=== PATIENT | female | born 1930 | race Caucasian/White ===

== ENCOUNTER 2018-04-21 19:00 | Inpatient (IN) | payer MEDICARE, BC ==
[~2018-04-21] VITALS: Ht 167.6 cm; Wt 74.4 kg
[~2018-04-21 19:00] MED LIST: CHOL200074 MT; CITA10SO PO; DOCU-138 MT; HYDR12.529 MT; LOSA50TA20 MT; MAGN250T29 MT; PANT40TA4 MT; POLY17PO28 MT; SIMV10TA6 MT
[2018-04-21 19:35] VITALS: BP 208/76
[2018-04-21] MEDS ORDERED: FLUT16SP15 BOTHNSTRLS (20:42)
[2018-04-21] MEDS ORDERED: BENZ100C86 MT (20:42)
[2018-04-21] MEDS ORDERED: LEVO75TA7 MT (20:42)
[2018-04-21] MEDS ORDERED: ACET-2178 MT (20:43)
[2018-04-21] MEDS ORDERED: ACETAMINOPHEN 325MG TABLET PO PRN (21:45)
[2018-04-21] MEDS ORDERED: DOCUSATE SODIUM 100MG CAPSULE PO PRN (21:45)
[2018-04-21] MEDS ORDERED: DIPHENHYDRAMINE 50MG/ML VIAL IV PRN (21:45)
[2018-04-21] MEDS ORDERED: GUAIFENESIN 200MG/10ML SUGAR FREE UDC PO PRN (21:45)
[2018-04-21] MEDS ORDERED: HYDRALAZINE 20MG/ML VIAL IV PRN (21:45)
[2018-04-21] MEDS ORDERED: BENZONATATE 100MG CAPSULE PO PRN (21:45)
[2018-04-21] MEDS ORDERED: IPRATROPIUM/ALBUTEROL 0.5-3(2.5)MG/3ML NEB HHN PRN (22:00)
[2018-04-21] MEDS: METHYLPREDNISOLONE SOD SUCC 40 MG/ML VIAL IV SCH (22:11)
[2018-04-22] VITALS: BP 171/77
[2018-04-22] MEDS: IPRATROPIUM/ALBUTEROL 0.5-3(2.5)MG/3ML NEB HHN SCH ×6 (00:01→20:01)
[2018-04-22] MEDS: BUDESONIDE 0.5MG/2ML NEB HHN SCH ×3 (00:05→20:01)
[2018-04-22 04:00] VITALS: BP 148/71
[2018-04-22] MEDS: METHYLPREDNISOLONE SOD SUCC 40 MG/ML VIAL IV SCH ×2 (06:17→14:49)
[2018-04-22] MEDS: LEVOTHYROXINE SODIUM 75MCG TABLET PO SCH (06:20)
[2018-04-22 07:07] LABS: CHLORIDE 82 mEq/L (98-107)
[2018-04-22] MEDS ORDERED: PANTOPRAZOLE 40MG DR TABLET PO SCH ×2 (07:20→21:00)
[2018-04-22 07:22] LABS: BASOPHILS % 0.2 % (0.0-2.0); HEMATOCRIT. 34.3 % (36.0-48.0); HEMOGLOBIN. 12.2 g/dL (12.0-16.0); LYMPHOCYTES % 7.3 % (20.0-50.0); MEAN CORPUSCULAR HEMOGLOBIN 31.7 pg (28.0-32.0); MEAN CORPUSCULAR VOLUME 89.3 fL (81.0-99.0); MEAN PLATELET VOLUME 8.2 fl (7.4-10.4); MONOCYTES % 3.7 % (2.0-8.0); NEUTROPHILS % 88.8 % (40.0-76.0); PLATELET 192 x1000/uL (130-400); RED BLOOD CELL COUNT 3.84 mill/uL (4.2-5.4); RED CELL DISTRIBUTION WIDTH 14.8 % (11.6-14.6)
[2018-04-22] MEDS ORDERED: SODIUM CHLORIDE 0.9% 1,000 ML IV SCH (08:45)
[2018-04-22] MEDS ORDERED: HYDROCHLOROTHIAZIDE 12.5MG CAPSULE PO SCH (09:00)
[2018-04-22] MEDS: FLUTICASONE PROPIONATE 50MCG/SPRAY BOTTLE BOTHNSTRLS SCH ×2 (09:00→16:20)
[2018-04-22] MEDS ORDERED: CITALOPRAM HYDROBROMIDE 10MG TABLET PO SCH (09:00)
[2018-04-22] MEDS ORDERED: CEFTRIAXONE 1 G PREMIX 50 ML IV SCH (09:30)
[2018-04-22] MEDS: LOSARTAN POTASSIUM 50 MG TABLET PO SCH (09:35)
[2018-04-22] MEDS ORDERED: BUDESONIDE 0.5MG/2ML NEB HHN SCH (10:00)
[2018-04-22 13:01] VITALS: BP 126/51
[2018-04-22 13:53] LABS: T4 FREE 1.59 ng/dL (0.76-1.46)
[2018-04-22] MEDS: METRONIDAZOLE 500 MG PREMIX 100 ML IV SCH ×2 (14:49→19:10)
[2018-04-22] MEDS ORDERED: SODIUM CHLORIDE 3% 500 ML IV ONE (15:00)
[2018-04-22] MEDS: CEFTRIAXONE 1,000 MG in DEXTROSE 5% WATER 50 ML IV SCH (16:20)
[2018-04-22 16:35] VITALS: BP 143/74
[2018-04-22] MEDS: DEXAMETHASONE 4MG TABLET PO SCH ×2 (19:10→23:46)
[2018-04-22 20:00] VITALS: BP 135/61
[2018-04-23] VITALS: BP 130/61
[2018-04-23] MEDS: IPRATROPIUM/ALBUTEROL 0.5-3(2.5)MG/3ML NEB HHN SCH ×6 (00:47→20:53)
[2018-04-23] MEDS: METRONIDAZOLE 500 MG PREMIX 100 ML IV SCH ×3 (02:58→20:30)
[2018-04-23 04:00] VITALS: BP 126/69
[2018-04-23] MEDS: DEXAMETHASONE 4MG TABLET PO SCH ×3 (06:27→17:44)
[2018-04-23] MEDS: LEVOTHYROXINE SODIUM 75MCG TABLET PO SCH (06:27)
[2018-04-23] MEDS: BUDESONIDE 0.5MG/2ML NEB HHN SCH ×2 (07:14→20:53)
[2018-04-23] MEDS ORDERED: PANTOPRAZOLE 40MG DR TABLET PO SCH (07:20)
[2018-04-23 08:00] VITALS: BP 140/67
[2018-04-23] MEDS ORDERED: FAMOTIDINE 20MG TABLET PO SCH (09:00)
[2018-04-23] MEDS: FLUTICASONE PROPIONATE 50MCG/SPRAY BOTTLE BOTHNSTRLS SCH ×2 (09:51→17:37)
[2018-04-23] MEDS: FAMOTIDINE 20MG TABLET PO SCH (09:53)
[2018-04-23] MEDS: LOSARTAN POTASSIUM 50 MG TABLET PO SCH (09:53)
[2018-04-23] MEDS ORDERED: BARIUM SULFATE 176 GM SUSP.RECON ONE (10:26)
[2018-04-23] MEDS ORDERED: SODIUM CHLORIDE 0.9% 1,000 ML IV SCH (11:45)
[2018-04-23 12:00] VITALS: BP 130/66
[2018-04-23] MEDS: CEFTRIAXONE 1,000 MG in DEXTROSE 5% WATER 50 ML IV SCH (14:28)
[2018-04-23 16:05] VITALS: BP 144/49
[2018-04-23] MEDS ORDERED: SODIUM CHLORIDE 3% 500 ML IV NR (18:00)
[2018-04-23 20:00] VITALS: BP 139/66
[2018-04-24] VITALS (8 sets, daily range): BP systolic 133–168; BP diastolic 52–109
[2018-04-24] MEDS: IPRATROPIUM/ALBUTEROL 0.5-3(2.5)MG/3ML NEB HHN SCH ×5 (00:15→20:11)
[2018-04-24] MEDS: METRONIDAZOLE 500 MG PREMIX 100 ML IV SCH ×2 (03:57→11:04)
[2018-04-24 04:31] LABS: CHLORIDE 91 mEq/L (98-107)
[2018-04-24] MEDS: DEXAMETHASONE 4MG TABLET PO SCH ×2 (06:32)
[2018-04-24] MEDS: BUDESONIDE 0.5MG/2ML NEB HHN SCH ×2 (08:45→20:11)
[2018-04-24] MEDS: LOSARTAN POTASSIUM 50 MG TABLET PO SCH (09:19)
[2018-04-24] MEDS: FAMOTIDINE 20MG TABLET PO SCH (09:19)
[2018-04-24] MEDS: CEFTRIAXONE 1,000 MG in DEXTROSE 5% WATER 50 ML IV SCH (11:04)
[2018-04-24] MEDS: LEVOTHYROXINE SODIUM 75MCG TABLET PO SCH (11:26)
[2018-04-24] MEDS: FLUTICASONE PROPIONATE 50MCG/SPRAY BOTTLE BOTHNSTRLS SCH ×2 (11:26→17:58)
[2018-04-24] MEDS ORDERED: OMEPRAZOLE 20MG CAPSULE EXTENDED RELEASE PO NR (12:30)
[2018-04-24 13:39] LABS: CLARITY URINE CLEAR (CLEAR); COLOR URINE YELLOW (YELLOW); KETONES URINE NEGATIVE (NEGATIVE); LEUKOCYTE ESTERASE URINE 1+ (NEGATIVE); NITRITE URINE NEGATIVE (NEGATIVE); OCCULT BLOOD URINE TRACE (NEGATIVE); PH URINE 6.5 (4.5-8.0); PROTEIN URINE 2+ (NEGATIVE); SPECIFIC GRAVITY URINE 1.009 (1.005-1.030); UROBILINOGEN URINE 0.2 E.U./dL (0.2-1.0)
[2018-04-24] MEDS: TRAMADOL HCL/ACETAMINOPHEN 37.5/325MG TABLET PO PRN (14:12)
[2018-04-24] MEDS: OMEPRAZOLE 20MG CAPSULE EXTENDED RELEASE PO SCH (21:09)
[2018-04-25] VITALS (7 sets, daily range): BP systolic 108–159; BP diastolic 60–84
[2018-04-25] MEDS: IPRATROPIUM/ALBUTEROL 0.5-3(2.5)MG/3ML NEB HHN SCH ×2 (01:10→21:08)
[2018-04-25] MEDS: OMEPRAZOLE 20MG CAPSULE EXTENDED RELEASE PO SCH ×2 (08:29→21:28)
[2018-04-25] MEDS: LEVOTHYROXINE SODIUM 75MCG TABLET PO SCH (08:29)
[2018-04-25] MEDS: FAMOTIDINE 20MG TABLET PO SCH (08:33)
[2018-04-25] MEDS: FLUTICASONE PROPIONATE 50MCG/SPRAY BOTTLE BOTHNSTRLS SCH (08:33)
[2018-04-25] MEDS: TRAMADOL HCL/ACETAMINOPHEN 37.5/325MG TABLET PO PRN (18:08)
[2018-04-25] MEDS ORDERED: BUDESONIDE 0.5MG/2ML NEB ONE (21:05)
== END 2018-04-25 22:45 | DRG 682 ==
LOC: 6WST 19:00 → 5EST 04-24 05:00 → 6EST 04-25 10:14
PROVIDERS: ADMIT Internal Medicine Critical Care Medicine; ATTEND Internal Medicine Critical Care Medicine
DX: N17.9 Acute kidney failure, unspecified (principal); J96.00 Acute respiratory failure, unspecified whether with hypoxia or hypercapnia; E87.1 Hypo-osmolality and hyponatremia; J98.11 Atelectasis; D64.9 Anemia, unspecified; E03.9 Hypothyroidism, unspecified; E78.5 Hyperlipidemia, unspecified; K21.9 Gastro-esophageal reflux disease without esophagitis; G20 Parkinson's disease; E04.1 Nontoxic single thyroid nodule; G70.9 Myoneural disorder, unspecified; Z96.653 Presence of artificial knee joint, bilateral; J44.9 Chronic obstructive pulmonary disease, unspecified; K59.00 Constipation, unspecified; M19.90 Unspecified osteoarthritis, unspecified site; R13.10 Dysphagia, unspecified; R47.1 Dysarthria and anarthria; I11.9 Hypertensive heart disease without heart failure; Z96.643 Presence of artificial hip joint, bilateral; S43.005A Unspecified dislocation of left shoulder joint, initial encounter; X58.XXXA Exposure to other specified factors, initial encounter; Y93.89 Activity, other specified; Y92.89 Other specified places as the place of occurrence of the external cause; Y99.8 Other external cause status; Z92.21 Personal history of antineoplastic chemotherapy; Z85.51 Personal history of malignant neoplasm of bladder; Z88.2 Allergy status to sulfonamides
CPT/HCPCS: 36415; 71045; 74230; 80048; 80061; 82024; 82533; 83036; 83519; 83930; 83935; 84295; 84300; 84439; 84443; 84481; 84550; 92611; 93005; 94640; 97162; 97166; 97530; A6261; J0360; J0696; J2920; J3490; J7030; J7040; J7060; J7620; J7626; J8540

== ENCOUNTER 2018-04-25 22:50 | Inpatient (IN) | payer MEDICARE, BC ==
[~2018-04-25] VITALS: Ht 167.6 cm; Wt 74.8 kg
[~2018-04-25 22:50] MED LIST changes: +ACET-2178 MT; +BENZ100C86 MT; +FLUT16SP15 BOTHNSTRLS; +LEVO75TA7 MT
[2018-04-26] MEDS ORDERED: IPRATROPIUM/ALBUTEROL 0.5-3(2.5)MG/3ML NEB HHN PRN (00:30)
[2018-04-26] MEDS ORDERED: DOCUSATE SODIUM 100MG CAPSULE PO PRN (00:30)
[2018-04-26] MEDS ORDERED: ACETAMINOPHEN 325MG TABLET PO PRN (00:30)
[2018-04-26] MEDS ORDERED: DIPHENHYDRAMINE 25MG CAPSULE PO PRN (00:30)
[2018-04-26] MEDS ORDERED: GUAIFENESIN 200MG/10ML SUGAR FREE UDC PO PRN (00:30)
[2018-04-26] MEDS ORDERED: TRAMADOL HCL/ACETAMINOPHEN 37.5/325MG TABLET PO PRN (00:30)
[2018-04-26] MEDS ORDERED: HYDRALAZINE HCL 10MG TABLET PO SCH (00:30)
[2018-04-26] MEDS ORDERED: BENZONATATE 100MG CAPSULE PO PRN (00:30)
[2018-04-26] MEDS ORDERED: HYDRALAZINE 10 MG in SODIUM CHLORIDE 0.9% 49.5 ML IV PRN (00:45)
[2018-04-26] MEDS: IPRATROPIUM/ALBUTEROL 0.5-3(2.5)MG/3ML NEB HHN SCH ×4 (00:50→20:46)
[2018-04-26 03:31] VITALS: BP 150/72
[2018-04-26] MEDS: LEVOTHYROXINE SODIUM 75MCG TABLET PO SCH (06:48)
[2018-04-26] MEDS ORDERED: CLONIDINE 0.1MG TABLET PO PRN (07:30)
[2018-04-26] MEDS ORDERED: OMEPRAZOLE 20MG CAPSULE EXTENDED RELEASE PO SCH (08:00)
[2018-04-26 08:09] VITALS: BP 135/75
[2018-04-26] MEDS: LOSARTAN POTASSIUM 50 MG TABLET PO SCH (09:00)
[2018-04-26] MEDS: FAMOTIDINE 20MG TABLET PO SCH (09:38)
[2018-04-26] MEDS ORDERED: BISACODYL 5MG TABLET PO PRN (19:45)
[2018-04-26 20:00] VITALS: BP 143/76
[2018-04-27] MEDS: IPRATROPIUM/ALBUTEROL 0.5-3(2.5)MG/3ML NEB HHN SCH ×5 (00:50→20:54)
[2018-04-27] MEDS: DOCUSATE SODIUM 100MG CAPSULE PO SCH ×3 (01:11→17:00)
[2018-04-27] MEDS: LEVOTHYROXINE SODIUM 75MCG TABLET PO SCH (06:09)
[2018-04-27 07:54] LABS: HEMATOCRIT. 40.1 % (36.0-48.0); HEMOGLOBIN. 13.7 g/dL (12.0-16.0); MEAN CORPUSCULAR HEMOGLOBIN 31.3 pg (28.0-32.0); MEAN CORPUSCULAR VOLUME 91.4 fL (81.0-99.0); MEAN PLATELET VOLUME 7.6 fl (7.4-10.4); PLATELET 331 x1000/uL (130-400); RED BLOOD CELL COUNT 4.39 mill/uL (4.2-5.4)
[2018-04-27 08:05] VITALS: BP 164/80
[2018-04-27] MEDS: FAMOTIDINE 20MG TABLET PO SCH (08:29)
[2018-04-27] MEDS: LOSARTAN POTASSIUM 50 MG TABLET PO SCH (08:29)
[2018-04-27 08:54] LABS: PHOSPHORUS 2.8 mg/dL (2.5-4.9)
[2018-04-27 09:48] LABS: VITAMIN B12 SERUM 1839 pg/mL (211-911)
[2018-04-27] MEDS ORDERED: POTASSIUM CHLORIDE 20MEQ TABLET SR PO SCH (11:15)
[2018-04-27] MEDS ORDERED: POTASSIUM CHLORIDE 20MEQ/PACKET PO SCH (11:30)
[2018-04-27 12:52] LABS: PLATELET ESTIMATE NORMAL
[2018-04-27 20:39] VITALS: BP 148/77
[2018-04-28] MEDS: IPRATROPIUM/ALBUTEROL 0.5-3(2.5)MG/3ML NEB HHN SCH ×6 (01:24→20:03)
[2018-04-28] MEDS: LEVOTHYROXINE SODIUM 75MCG TABLET PO SCH (06:03)
[2018-04-28 08:26] VITALS: BP 165/78
[2018-04-28] MEDS: DOCUSATE SODIUM 100MG CAPSULE PO SCH ×2 (08:34→16:37)
[2018-04-28] MEDS: LOSARTAN POTASSIUM 50 MG TABLET PO SCH (08:43)
[2018-04-28] MEDS: FAMOTIDINE 20MG TABLET PO SCH (08:43)
[2018-04-28 20:00] VITALS: BP 138/81
[2018-04-28] MEDS: PYRIDOSTIGMINE BROMIDE 60MG TABLET PO SCH (22:08)
[2018-04-29] MEDS: IPRATROPIUM/ALBUTEROL 0.5-3(2.5)MG/3ML NEB HHN SCH ×5 (01:29→19:58)
[2018-04-29] MEDS: PYRIDOSTIGMINE BROMIDE 60MG TABLET PO SCH ×3 (06:02→22:04)
[2018-04-29] MEDS: LEVOTHYROXINE SODIUM 75MCG TABLET PO SCH (06:02)
[2018-04-29 07:31] LABS: HEMATOCRIT. 33.2 % (36.0-48.0); HEMOGLOBIN. 11.7 g/dL (12.0-16.0); MEAN CORPUSCULAR HEMOGLOBIN 31.6 pg (28.0-32.0); MEAN PLATELET VOLUME 7.5 fl (7.4-10.4); PLATELET 283 x1000/uL (130-400); RED BLOOD CELL COUNT 3.69 mill/uL (4.2-5.4); RED CELL DISTRIBUTION WIDTH 14.6 % (11.6-14.6)
[2018-04-29 08:00] VITALS: BP 163/73
[2018-04-29] MEDS: DOCUSATE SODIUM 100MG CAPSULE PO SCH ×2 (08:19→17:05)
[2018-04-29] MEDS: LOSARTAN POTASSIUM 50 MG TABLET PO SCH (08:20)
[2018-04-29] MEDS: FAMOTIDINE 20MG TABLET PO SCH (08:20)
[2018-04-29 10:09] VITALS: BP 131/62
[2018-04-29] MEDS ORDERED: MAGNESIUM 2 G PREMIX 50 ML IV SCH (15:00)
[2018-04-29 18:02] LABS: PLATELET ESTIMATE NORMAL
[2018-04-29 20:00] VITALS: BP 146/71
[2018-04-30] MEDS: IPRATROPIUM/ALBUTEROL 0.5-3(2.5)MG/3ML NEB HHN SCH ×6 (00:12→21:23)
[2018-04-30] MEDS: PYRIDOSTIGMINE BROMIDE 60MG TABLET PO SCH ×3 (06:07→21:07)
[2018-04-30] MEDS: LEVOTHYROXINE SODIUM 75MCG TABLET PO SCH (06:07)
[2018-04-30 08:00] VITALS: BP_SYST 143; BP_SYST 159; BP_DIAS 74
[2018-04-30] MEDS: LOSARTAN POTASSIUM 50 MG TABLET PO SCH (08:37)
[2018-04-30] MEDS: FAMOTIDINE 20MG TABLET PO SCH (08:37)
[2018-04-30] MEDS: DOCUSATE SODIUM 100MG CAPSULE PO SCH ×2 (08:37→17:00)
[2018-04-30 20:00] VITALS: BP 137/64
[2018-05-01] MEDS: IPRATROPIUM/ALBUTEROL 0.5-3(2.5)MG/3ML NEB HHN SCH ×6 (01:18→20:20)
[2018-05-01] MEDS: LEVOTHYROXINE SODIUM 75MCG TABLET PO SCH (06:12)
[2018-05-01] MEDS: PYRIDOSTIGMINE BROMIDE 60MG TABLET PO SCH ×3 (06:12→21:20)
[2018-05-01 08:00] VITALS: BP 178/60
[2018-05-01] MEDS: DOCUSATE SODIUM 100MG CAPSULE PO SCH ×2 (09:00→16:39)
[2018-05-01] MEDS: LOSARTAN POTASSIUM 50 MG TABLET PO SCH (09:09)
[2018-05-01] MEDS: FAMOTIDINE 20MG TABLET PO SCH (09:09)
[2018-05-01 20:00] VITALS: BP 137/67
[2018-05-02] MEDS: IPRATROPIUM/ALBUTEROL 0.5-3(2.5)MG/3ML NEB HHN SCH ×6 (01:26→21:15)
[2018-05-02] MEDS: LEVOTHYROXINE SODIUM 75MCG TABLET PO SCH (06:58)
[2018-05-02] MEDS: PYRIDOSTIGMINE BROMIDE 60MG TABLET PO SCH ×3 (06:59→21:41)
[2018-05-02] MEDS: LOSARTAN POTASSIUM 50 MG TABLET PO SCH (08:44)
[2018-05-02] MEDS: DOCUSATE SODIUM 100MG CAPSULE PO SCH ×2 (08:44→18:16)
[2018-05-02] MEDS: FAMOTIDINE 20MG TABLET PO SCH (08:44)
[2018-05-02 09:25] VITALS: BP 169/58
[2018-05-02] MEDS ORDERED: PYRIDOSTIGMINE BROMIDE 60MG TABLET PO SCH (14:00)
[2018-05-02 20:00] VITALS: BP 128/71
[2018-05-03] MEDS: IPRATROPIUM/ALBUTEROL 0.5-3(2.5)MG/3ML NEB HHN SCH ×6 (01:30→20:11)
[2018-05-03] MEDS: PYRIDOSTIGMINE BROMIDE 60MG TABLET PO SCH ×3 (06:19→21:03)
[2018-05-03] MEDS: LEVOTHYROXINE SODIUM 75MCG TABLET PO SCH (06:19)
[2018-05-03 08:00] VITALS: BP 163/68
[2018-05-03] MEDS: DOCUSATE SODIUM 100MG CAPSULE PO SCH ×2 (08:59→17:28)
[2018-05-03] MEDS: LOSARTAN POTASSIUM 50 MG TABLET PO SCH (08:59)
[2018-05-03] MEDS: FAMOTIDINE 20MG TABLET PO SCH (08:59)
[2018-05-03 20:00] VITALS: BP 128/62
[2018-05-04] MEDS: IPRATROPIUM/ALBUTEROL 0.5-3(2.5)MG/3ML NEB HHN SCH ×6 (00:25→20:48)
[2018-05-04] MEDS: LEVOTHYROXINE SODIUM 75MCG TABLET PO SCH (06:04)
[2018-05-04] MEDS: PYRIDOSTIGMINE BROMIDE 60MG TABLET PO SCH ×3 (06:04→21:14)
[2018-05-04 08:00] LABS: HEMATOCRIT. 33.4 % (36.0-48.0); HEMOGLOBIN. 11.6 g/dL (12.0-16.0); MEAN CORPUSCULAR HEMOGLOBIN 31.5 pg (28.0-32.0); MEAN PLATELET VOLUME 8.3 fl (7.4-10.4); PLATELET 242 x1000/uL (130-400); RED BLOOD CELL COUNT 3.67 mill/uL (4.2-5.4); RED CELL DISTRIBUTION WIDTH 15.1 % (11.6-14.6)
[2018-05-04 08:04] VITALS: BP 147/72
[2018-05-04] MEDS: FAMOTIDINE 20MG TABLET PO SCH (08:38)
[2018-05-04] MEDS: DOCUSATE SODIUM 100MG CAPSULE PO SCH ×2 (08:38→17:33)
[2018-05-04] MEDS: LOSARTAN POTASSIUM 50 MG TABLET PO SCH (08:38)
[2018-05-04 14:10] LABS: PLATELET ESTIMATE NORMAL
[2018-05-04 20:00] VITALS: BP 145/74
[2018-05-04] MEDS ORDERED: MAGNESIUM 2 G PREMIX 50 ML IV NR (20:00)
[2018-05-05] MEDS: IPRATROPIUM/ALBUTEROL 0.5-3(2.5)MG/3ML NEB HHN SCH ×6 (00:29→20:40)
[2018-05-05] MEDS: PYRIDOSTIGMINE BROMIDE 60MG TABLET PO SCH ×3 (06:11→21:19)
[2018-05-05] MEDS: LEVOTHYROXINE SODIUM 75MCG TABLET PO SCH (06:12)
[2018-05-05 08:23] VITALS: BP 119/72
[2018-05-05] MEDS: FAMOTIDINE 20MG TABLET PO SCH (08:45)
[2018-05-05] MEDS: LOSARTAN POTASSIUM 50 MG TABLET PO SCH (08:45)
[2018-05-05] MEDS: DOCUSATE SODIUM 100MG CAPSULE PO SCH ×2 (08:45→17:12)
[2018-05-05 20:00] VITALS: BP 148/70
[2018-05-06] MEDS: IPRATROPIUM/ALBUTEROL 0.5-3(2.5)MG/3ML NEB HHN SCH ×6 (00:03→19:48)
[2018-05-06] MEDS: LEVOTHYROXINE SODIUM 75MCG TABLET PO SCH (06:00)
[2018-05-06] MEDS: PYRIDOSTIGMINE BROMIDE 60MG TABLET PO SCH ×3 (06:00→22:00)
[2018-05-06 08:00] VITALS: BP 161/60
[2018-05-06] MEDS: DOCUSATE SODIUM 100MG CAPSULE PO SCH ×2 (10:36→18:05)
[2018-05-06] MEDS: FAMOTIDINE 20MG TABLET PO SCH (10:36)
[2018-05-06] MEDS: LOSARTAN POTASSIUM 50 MG TABLET PO SCH (10:36)
[2018-05-06 20:00] VITALS: BP 141/62
[2018-05-07] MEDS: IPRATROPIUM/ALBUTEROL 0.5-3(2.5)MG/3ML NEB HHN SCH ×6 (00:17→23:11)
[2018-05-07] MEDS: PYRIDOSTIGMINE BROMIDE 60MG TABLET PO SCH ×3 (06:34→21:31)
[2018-05-07] MEDS: LEVOTHYROXINE SODIUM 75MCG TABLET PO SCH (06:34)
[2018-05-07 08:00] VITALS: BP 126/78
[2018-05-07] MEDS: LOSARTAN POTASSIUM 50 MG TABLET PO SCH (09:00)
[2018-05-07] MEDS ORDERED: BARIUM SULFATE 176 GM SUSP.RECON ONE (10:20)
[2018-05-07] MEDS: FAMOTIDINE 20MG TABLET PO SCH (12:09)
[2018-05-07] MEDS: DOCUSATE SODIUM 100MG CAPSULE PO SCH ×2 (12:09→18:04)
[2018-05-07 20:00] VITALS: BP 141/70
[2018-05-08] MEDS: IPRATROPIUM/ALBUTEROL 0.5-3(2.5)MG/3ML NEB HHN SCH ×3 (02:22→12:18)
[2018-05-08] MEDS: LEVOTHYROXINE SODIUM 75MCG TABLET PO SCH (06:47)
[2018-05-08] MEDS: PYRIDOSTIGMINE BROMIDE 60MG TABLET PO SCH ×2 (06:47→14:49)
[2018-05-08 08:01] VITALS: BP 150/75
[2018-05-08] MEDS: FAMOTIDINE 20MG TABLET PO SCH (08:57)
[2018-05-08] MEDS: LOSARTAN POTASSIUM 50 MG TABLET PO SCH (08:57)
[2018-05-08] MEDS: DOCUSATE SODIUM 100MG CAPSULE PO SCH (08:57)
[2018-05-08 12:06] VITALS: BP 150/75
== END 2018-05-08 15:08 | disposition still patient (30) | DRG 189 ==
PROVIDERS: ADMIT Psychiatry & Neurology Neurology; ATTEND Internal Medicine Critical Care Medicine
DX: J96.00 Acute respiratory failure, unspecified whether with hypoxia or hypercapnia (principal); J69.0 Pneumonitis due to inhalation of food and vomit; E87.1 Hypo-osmolality and hyponatremia; N17.9 Acute kidney failure, unspecified; R53.81 Other malaise; K21.9 Gastro-esophageal reflux disease without esophagitis; M19.90 Unspecified osteoarthritis, unspecified site; E03.9 Hypothyroidism, unspecified; E78.5 Hyperlipidemia, unspecified; Z85.51 Personal history of malignant neoplasm of bladder; Z92.21 Personal history of antineoplastic chemotherapy; Z96.643 Presence of artificial hip joint, bilateral; D64.9 Anemia, unspecified; K59.00 Constipation, unspecified; R32 Unspecified urinary incontinence; R13.10 Dysphagia, unspecified; M54.5 Low back pain; G89.29 Other chronic pain; J44.9 Chronic obstructive pulmonary disease, unspecified; G62.9 Polyneuropathy, unspecified; M81.0 Age-related osteoporosis without current pathological fracture; Z88.2 Allergy status to sulfonamides; R47.1 Dysarthria and anarthria; I11.9 Hypertensive heart disease without heart failure; Z96.653 Presence of artificial knee joint, bilateral
CPT/HCPCS: 36415; 71045; 74230; 80048; 82378; 82607; 83735; 84100; 84443; 92523; 92610; 92611; 93970; 94640; 97110; 97116; 97162; 97167; 97530; 97535; C1893; G0515; J3475; J7050; J7620